=== PATIENT | female | born 1940 | race Two or more races ===

== ENCOUNTER → 2017-03-31 | Emergency (ER) | payer OTHER ==
[~2017-03-31] VITALS: Ht 162.6 cm; Wt 53.5 kg
[~2017-03-31] MED LIST: BONIVA2.5 MG PO; KETO10TA2 PO; LEVAQUIN750 MG PO; NORTUSS-EX LIQ118 ML PO; OMEPRAZOLE20 M1 PO; SYNTHROID50 MCG; SYNTHROID75 MCG PO; TUSSI PRES-B L120 M1 PO; ZITHROMAX TRI-500 MG PO; ZOCOR20 MG PO
== END | disposition home or self-care (01) ==
LOC: ER 12:50
DX: S40.011A Contusion of right shoulder, initial encounter (principal); W18.09XA Striking against other object with subsequent fall, initial encounter; Y93.89 Activity, other specified; Y92.89 Other specified places as the place of occurrence of the external cause; Y99.8 Other external cause status

== ENCOUNTER 2018-01-20 10:26 | Emergency (ER) | payer OTHER ==
[~2018-01-20] VITALS: Ht 162.6 cm; Wt 54.4 kg
[2018-01-20] MEDS ORDERED: ATORVASTATIN CA20 MG (10:50)
== END 2018-01-20 14:00 | disposition home or self-care (01) ==
LOC: ER 10:26
DX: M46.83 Other specified inflammatory spondylopathies, cervicothoracic region (principal); J06.9 Acute upper respiratory infection, unspecified

== ENCOUNTER 2018-04-16 08:57 | Outpatient (CLI) | payer OTHER ==
[~2018-04-16 08:57] MED LIST changes: +ATORVASTATIN CA20 MG
== END 2018-04-16 09:00 | disposition home or self-care (01) ==
LOC: LAB 08:57
DX: I10 Essential (primary) hypertension (principal); E11.9 Type 2 diabetes mellitus without complications; E03.8 Other specified hypothyroidism; E55.9 Vitamin D deficiency, unspecified; N39.0 Urinary tract infection, site not specified; M32.10 Systemic lupus erythematosus, organ or system involvement unspecified; M33.20 Polymyositis, organ involvement unspecified; M05.29 Rheumatoid vasculitis with rheumatoid arthritis of multiple sites; M10.09 Idiopathic gout, multiple sites

== ENCOUNTER → 2018-05-02 | Outpatient (CLI) | payer OTHER | END | disposition home or self-care (01) | LOC: NUCLEAR 08:51 | DX: M05.79 Rheumatoid arthritis with rheumatoid factor of multiple sites without organ or systems involvement (principal); M87.059 Idiopathic aseptic necrosis of unspecified femur | CPT/HCPCS: 78306; 78315; A9503 ==

== ENCOUNTER 2018-09-06 11:58 | Outpatient (CLI) | payer OTHER | END 2018-09-06 17:00 | disposition home or self-care (01) | LOC: RAD 11:58 | DX: M15.0 Primary generalized (osteo)arthritis (principal); M05.79 Rheumatoid arthritis with rheumatoid factor of multiple sites without organ or systems involvement ==

== ENCOUNTER 2018-11-15 12:13 | Outpatient (CLI) | payer OTHER | END 2018-11-15 12:19 | disposition home or self-care (01) | LOC: RAD 12:13 | DX: M75.52 Bursitis of left shoulder (principal); M75.51 Bursitis of right shoulder; M15.0 Primary generalized (osteo)arthritis ==

== ENCOUNTER 2019-04-09 10:55 | Outpatient (CLI) | payer OTHER | END 2019-04-09 11:06 | disposition home or self-care (01) | LOC: SONOGRAMA 10:55 | DX: M25.512 Pain in left shoulder (principal); M25.112 Fistula, left shoulder ==

== ENCOUNTER 2019-04-16 10:32 | Outpatient (CLI) | payer OTHER | END 2019-04-16 10:37 | disposition home or self-care (01) | LOC: RAD 10:32 | DX: R07.89 Other chest pain (principal) ==

== ENCOUNTER → 2019-10-14 | Emergency (ER) | payer OTHER ==
[~2019-10-14] VITALS: Ht 162.6 cm; Wt 54.9 kg
[~2019-10-14] MED LIST changes: +MOBIC15 MG PO
== END ==
LOC: ER 01:05
DX: S46.811A Strain of other muscles, fascia and tendons at shoulder and upper arm level, right arm, initial encounter (principal); X50.1XXA Overexertion from prolonged static or awkward postures, initial encounter; Y93.89 Activity, other specified; Y92.89 Other specified places as the place of occurrence of the external cause; Y99.8 Other external cause status

== ENCOUNTER 2020-04-06 08:31 | Outpatient (CLI) | payer OTHER | END 2020-04-06 08:37 | disposition home or self-care (01) | LOC: MAMO-SONO 08:31 | PROVIDERS: ATTEND Internal Medicine Endocrinology, Diabetes & Metabolism | DX: N60.02 Solitary cyst of left breast (principal); N64.4 Mastodynia; E04.1 Nontoxic single thyroid nodule; Z12.31 Encounter for screening mammogram for malignant neoplasm of breast ==

== ENCOUNTER 2020-05-08 14:22 | Outpatient (CLI) | payer OTHER | END 2020-05-08 14:23 | disposition home or self-care (01) | LOC: NUCLEAR 14:22 | PROVIDERS: ATTEND Internal Medicine Endocrinology, Diabetes & Metabolism | DX: M81.0 Age-related osteoporosis without current pathological fracture (principal) ==

== ENCOUNTER → 2024-08-20 | Emergency (ER) | payer OTHER ==
[2024-08-20 22:36] VITALS: BP 0/0; O2SAT 0
== END | disposition expired ==
LOC: ER 22:20
DX: E03.9 Hypothyroidism, unspecified; G30.9 Alzheimer's disease, unspecified; F02.80 Dementia in other diseases classified elsewhere, unspecified severity, without behavioral disturbance, psychotic disturbance, mood disturbance, and anxiety